=== PATIENT | male | born 1985 | race Caucasian/White ===

== ENCOUNTER 2023-10-19 11:41 | Emergency (ER) | payer BC ==
[2023-10-19 13:03] LABS: BASOPHILS % (AUTO) 0.1 %; HCT - HEMATOCRIT 48.8 % (42.0-52.0); HGB - HEMOGLOBIN 16.9 g/dL (14.0-18.0); LYMPHOCYTES % (AUTO) 6.8 %; MEAN CORPUSCULAR HEMOGLOBIN 30.2 pg (27.0-31.0); MEAN CORPUSCULAR HGB CONC 34.6 g/dL (32.0-36.0); MEAN CORPUSCULAR VOLUME 87.1 fL (80.0-94.0); MONOCYTES # (AUTO) 0.4 10^3/uL (0.0-1.0); MONOCYTES % (AUTO) 2.5 %; NEUTROPHILS # (AUTO) 13.2 10^3/uL (1.5-6.6); NEUTROPHILS % (AUTO) 90.2 %; PLT - PLATELET COUNT 281 10^3/uL (130-450); RED CELL DISTRIBUTION WIDTH 11.9 % (12.0-15.0); WHITE BLOOD COUNT 14.7 x10^3/uL (4.8-10.8)
[2023-10-19 13:25] LABS: ALBUMIN 5.6 g/dL (3.2-5.5); ALBUMIN/GLOBULIN RATIO 1.9 (1.0-2.2); BILIRUBIN,TOTAL 0.7 mg/dL (0.2-1.0); CALCIUM 10.3 mg/dL (8.5-10.3); CREATININE 0.8 mg/dL (0.6-1.3); TOTAL PROTEIN 8.5 g/dL (6.4-8.9)
[2023-10-19] MEDS ORDERED: iohexoL-300 100 ML VIAL ONE (15:43)
[2023-10-19] MEDS: HYDROmorphone 1 MG/ML CARPUJECT IVP STA (16:11)
[2023-10-19] MEDS: ONDANSETRON 4 MG/2 ML VIAL IVP STA ×2 (16:11→17:52)
[2023-10-19] MEDS: SODIUM CHLORIDE 0.9% 1,000 ML IV STA (16:11)
--- NOTE | 2023-10-19 16:34 | CT Report ---
PROCEDURE: Abdomen/Pelvis W INDICATIONS: LLQ abd pain, vomiting CONTRAST: 100ml [id number] TECHNIQUE: After the administration of intravenous contrast, a CT scan of the abdomen and pelvis was performed. Images were recorded and evaluated at appropriate window settings. Reformats: coronal and sagittal. F or radiation dose reduction, the following was used: automated exposure control, adjustment of mA and /or kV according to patient size. COMPARISON: None. FINDINGS: Image quality: Diagnostic. Lower chest: Unremarkable. Liver: No solid mass noted. Mild to moderate diffuse hepatic steatosis. Gallbladder: Absent. Biliary tree: No intrahepatic or extrahepatic dilation, accounting for age. Spleen: No splenomegaly. Pancreas: No pancreatic ductal dilation. Adrenals: No adrenal nodule. Kidneys and ureters: No hydronephrosis. No renal cystic lesion which requires follow up. No solid mas s. Stomach, bowel and peritoneum: No gastric or small bowel dilation. No abnormal wall thickening. No pa thologic free fluid. Remote partial distal colectomy. Lymph nodes: No central or retroperitoneal adenopathy. Vessels: No infrarenal aortic aneurysm. Patent portal vein. PELVIS Reproductive organs: Unremarkable. Bladder: No abnormal wall thickening, accounting for underdistention. Pelvic lymph nodes: No pelvic adenopathy by size criteria. Bones: No aggressive osseous abnormality. Other: No significant ventral or inguinal hernia. IMPRESSION: 1. Mild to moderate diffuse hepatic steatosis. 2. Remote partial distal colectomy. 3. No acute abdominal process identified. Reviewed by: Teo Mckeon MD on 10/19/2023 4:32 PM PDT Approved by: Teo Mckeon MD on 10/19/2023 4:32 PM PDT Station ID: [id number]
[2023-10-19] MEDS: iohexoL-300 100 ML VIAL IVP ONE (17:10)
[2023-10-19] MEDS: PROMETHAZINE 25 MG/1 ML VIAL IM STA (17:40)
[2023-10-19] MEDS: DICYCLOMINE 10 MG CAPSULE PO STA (17:43)
[2023-10-19] MEDS: DROPERIDOL 5 MG/2 ML VIAL IVP STA (17:44)
--- NOTE | 2023-10-19 17:45 | ED Physician Documentation ---
PD HPI NVD - Stated complaint Stated Complaint: N/V - Chief complaint Chief Complaint: Abd Pain - History obtained from History obtained from: Patient - History of Present Illness Timing - onset: Last night Timing - duration: Days Timing - details: Abrupt onset Pain level max: 7 Pain level now: 7 Associated symptoms: Abdominal pain Contributing factors: Bad food. No: Travel, Recent antibiotics, Alcohol use - Additonal information Additional information: 38-year-old male with nausea, vomiting, diarrhea after eating crab last night. He states he has had a colostomy in the past but this has been reversed. He states he had a colonic perforation. Visiting from [place] No fevers. No chills. No recent antibiotics. He states that he does vape, rarely drinks alcohol. No blood in the stool. No blood in the vomit. Has Zofran and Phenergan at home. States that he has been evaluated for inflammatory bowel disease, no history of Crohn's or ulcerative colitis. Review of Systems Constitutional: denies: Fever, Chills Respiratory: denies: Cough Skin: denies: Rash Musculoskeletal: denies: Neck pain, Back pain Neurologic: denies: Headache PD PAST MEDICAL HISTORY - Past Medical History Past Medical History: Yes Cardiovascular: High cholesterol Respiratory: None Neuro: Other Endocrine/Autoimmune: None GI: GERD, Chronic diarrhea, Diverticulitis, Other : None HEENT: None Psych: Anxiety Musculoskeletal: None Derm: None - Past Surgical History Past Surgical History: Yes General: Cholecystectomy, Bowel surgery HEENT: Tonsil/Adenoidectomy - Present Medications Home Medications: Ambulatory Orders Medication Instructions Recorded Confirmed Dicyclomine [Bentyl] 10 mg PO QID PRN #30 cap 10/19/23 - Allergies Allergies/Adverse Reactions: Allergies Allergy/AdvReac Type Severity Reaction Status Date / Time levofloxacin [From Levaquin] Allergy Anaphylaxis Verified 10/19/23 11:57 - Social History Does the pt smoke?: No Smoking Status: Former smoker Does the pt drink ETOH?: Yes Does the pt have substance abuse?: Yes Substance Use and Type: Marijuana - Immunizations Immunizations are current?: Yes - POLST Patient has POLST: No PD ED PE NORMAL - Vitals Vital signs reviewed: Yes - General General: Alert and oriented X 3, No acute distress - HEENT HEENT: PERRL, Moist mucous membranes - Neck Neck: Supple, no meningeal sign - Cardiac Cardiac: RRR, Strong equal pulses - Respiratory Respiratory: No respiratory distress, Clear bilaterally - Abdomen Abdomen: Soft, Non distended, Other (Mild tenderness to palpation, mainly in the left lower quadrant. No peritoneal signs.) - Derm Derm: Warm and dry - Extremities Extremities: No edema, No calf tenderness / cord - Neuro Neuro: Alert and oriented X 3 - Psych Psych: Normal mood, Normal affect Results - Vitals Vitals: Vital Signs - 24 hr 10/19/23 10/19/23 10/19/23 11:57 12:03 14:03 Temperature 36.4 C L Heart Rate 98 106 H 104 H Respiratory 18 16 16 Rate Blood Pressure 162/101 H 158/102 H 151/96 H O2 Saturation 98 98 99 10/19/23 10/19/23 15:13 17:54 Temperature Heart Rate 99 108 H Respiratory 16 18 Rate Blood Pressure 144/97 H 145/95 H O2 Saturation 95 97 Oxygen O2 Source Room air - Labs Labs: Laboratory Tests 10/19/23 10/19/23 12:57 12:57 WBC 14.7 H RBC 5.60 Hgb 16.9 Hct 48.8 MCV 87.1 MCH 30.2 MCHC 34.6 RDW 11.9 L Plt Count 281 MPV 10.0 Neut # (Auto) 13.2 H Lymph # (Auto) 1.0 L [place] # (Auto) 0.4 Eos # (Auto) 0.0 Baso # (Auto) 0.0 Absolute Nucleated RBC 0.00 Nucleated RBC % 0.0 Sodium 140 Potassium 4.0 Chloride 99 L Carbon Dioxide 21 Anion Gap 20.0 H BUN 7 Creatinine 0.8 Estimated GFR (MDRD) 108 Glucose 132 H Calcium 10.3 Total Bilirubin 0.7 AST 31 ALT 29 Alkaline Phosphatase 89 Total Protein 8.5 Albumin 5.6 H Globulin 2.9 Albumin/Globulin Ratio 1.9 Lipase 26 - Rads (name of study) CT abdomen pelvis Relevant Findings:: Final report received, See rad report PD Medical Decision Making - ED course Complexity details: reviewed results, re-evaluated patient, considered different ial, d/w patient ED course: Patient is a 38-year-old male who presents to the emergency department with nausea, vomiting and diarrhea following eating crab last night. Possible food poisoning. Possible viral gastroenteritis. CT scan does not show any acute abnormalities. Given IV fluids. Mild elevation of his white blood cell count. No other significant lab abnormalities. Feels better after Zofran, Dilaudid and IV fluids. Tolerating p.o. without difficulty. He was also given Bentyl which has helped his cramping in the past. Requests a prescription for Bentyl for home. This was provided. Abdomen is soft, nontender nondistended on serial exam. No evidence of perforation or obstruction. Patient counseled regarding signs and symptoms for which I believe and urgent re-evaluation would be necessary. Patient with good understanding of and agreement to plan and is comfortable going home at this time This document was made in part using voice recognition software. While efforts are made to proofread this document, sound alike and grammatical errors may occur. Departure - Departure Disposition: 01 Home, Self Care Clinical Impression: Vomiting Qualifiers: Vomiting type: unspecified Nausea presence: with nausea Qualified Code(s): R11.2 - Nausea with vomiting, unspecified Diarrhea Qualifiers: Diarrhea type: unspecified type Qualified Code(s): R19.7 - Diarrhea, unspecified Condition: Good Instructions: ED Gastroenteritis Vs Food Poison Follow-Up: Laura Downs MD [Primary Care Provider] - Within 1 week Prescriptions: Dicyclomine [Bentyl] 10 mg PO QID PRN #30 cap PRN Reason: Abdominal Pain Comments: Your prescription was sent to [facility] in [place]. Your CT scan does not show any acute abnormalities today. Please make sure you are drinking plenty of fluids at home. Please return if you worsen. Forms: PCP List Discharge Date/Time: 10/19/23 18:00
[2023-10-19 18:03] VITALS: BP 145/95; O2SAT 97
== END 2023-10-19 18:00 | disposition home or self-care (01) ==
LOC: ED 11:41
DX: R11.2 Nausea with vomiting, unspecified (principal); R19.7 Diarrhea, unspecified; E78.00 Pure hypercholesterolemia, unspecified; F17.290 Nicotine dependence, other tobacco product, uncomplicated
CPT/HCPCS: 36415; 74177; 80053; 83690; 85025; 96374; 96375; 99283; A9270; J1170; Q9967

== ENCOUNTER 2023-12-06 07:47 | Emergency (ER) | payer BC ==
--- NOTE | 2023-12-06 08:19 | ED Physician Documentation ---
PD HPI NVD - Stated complaint Stated Complaint: ABD PX,VOMITING - Chief complaint Chief Complaint: Abd Pain - History obtained from History obtained from: Patient - History of Present Illness Timing - duration: Hours (14) Timing - details: Abrupt onset Pain level max: 8 Pain level now: 6 Associated symptoms: Abdominal pain (Diffuse pain, cramping). No: Fever Contributing factors: Sick contact Worsened by: Eating - Additonal information Additional information: 38-year-old male with a history of cyclical vomiting syndrome presents to the emergency department complaining of abdominal pain, nausea and vomiting, states started last night. He states he ate chicken tenders last night. His kids have been sick with nausea, vomiting and diarrhea. He has not had any diarrhea. No fevers. No chills. No recent antibiotics. No recent travel. Had a colonic perforation in the past that required a colostomy that has now been reversed. Review of Systems Constitutional: denies: Fever, Chills GI: denies: Vomiting, Diarrhea Skin: denies: Rash Musculoskeletal: denies: Neck pain, Back pain Neurologic: denies: Headache PD PAST MEDICAL HISTORY - Past Medical History Cardiovascular: High cholesterol Respiratory: None Neuro: Other Endocrine/Autoimmune: None GI: GERD, Chronic diarrhea, Diverticulitis, Other : None HEENT: None Psych: Anxiety Musculoskeletal: None Derm: None - Past Surgical History Past Surgical History: Yes General: Cholecystectomy, Bowel surgery HEENT: Tonsil/Adenoidectomy - Present Medications Home Medications: Ambulatory Orders Medication Instructions Recorded Confirmed Amitriptyline [Elavil] 1 tab PO DAILY 12/06/23 12/06/23 LORazepam [Ativan] 1 tab PO PRN PRN 12/06/23 12/06/23 Pantoprazole Sodium [Protonix] 1 tab PO DAILY 12/06/23 12/06/23 Rosuvastatin Calcium 1 tab PO DAILY 12/06/23 12/06/23 - Allergies Allergies/Adverse Reactions: Allergies Allergy/AdvReac Type Severity Reaction Status Date / Time levofloxacin [From Levaquin] Allergy Anaphylaxis Verified 12/06/23 08:01 - Social History Does the pt smoke?: No Smoking Status: Never smoker Does the pt drink ETOH?: Yes Does the pt have substance abuse?: Yes - Immunizations Immunizations are current?: Yes - POLST Patient has POLST: No PD ED PE NORMAL - Vitals Vital signs reviewed: Yes - General General: Alert and oriented X 3, No acute distress - HEENT HEENT: PERRL, Moist mucous membranes - Neck Neck: Supple, no meningeal sign - Cardiac Cardiac: RRR - Respiratory Respiratory: No respiratory distress, Clear bilaterally - Abdomen Abdomen: Soft, Non distended, Other (Diffusely tender to palpation without peritoneal signs) - Back Back: No CVA TTP, No spinal TTP - Derm Derm: Warm and dry - Extremities Extremities: No deformity, No edema, No calf tenderness / cord - Neuro Neuro: Alert and oriented X 3 - Psych Psych: Normal mood, Normal affect Results - Vitals Vitals: Vital Signs - 24 hr 12/06/23 12/06/23 12/06/23 07:53 10:01 11:31 Temperature 36.1 C L Heart Rate 80 99 101 H Respiratory 18 16 18 Rate Blood Pressure 165/121 H 117/86 H 119/81 H O2 Saturation 99 98 98 Oxygen O2 Source Room air - Labs Labs: Laboratory Tests 12/06/23 12/06/23 08:12 08:28 WBC 8.9 RBC 5.47 Hgb 16.3 Hct 49.2 MCV 89.9 MCH 29.8 MCHC 33.1 RDW 12.4 Plt Count 211 MPV 10.4 Neut # (Auto) 7.6 H Lymph # (Auto) 1.1 L [place] # (Auto) 0.2 Eos # (Auto) 0.0 Baso # (Auto) 0.0 Absolute Nucleated RBC 0.00 Nucleated RBC % 0.0 Sodium 137 Potassium 4.6 H Chloride 100 L Carbon Dioxide 27 Anion Gap 10.0 BUN 7 Creatinine 0.9 Estimated GFR (MDRD) 94 Glucose 135 H Calcium 9.6 Total Bilirubin 0.4 AST 25 ALT 29 Alkaline Phosphatase 90 Total Protein 8.2 Albumin 5.0 Globulin 3.2 Albumin/Globulin Ratio 1.6 Lipase 25 PD Medical Decision Making - ED course Complexity details: reviewed results, re-evaluated patient, considered differential, d/w patient ED course: Patient with cyclical vomiting syndrome. He was given Dilaudid, droperidol, Zofran, Toradol and Bentyl. Slept in the emergency department. Feels much better upon awakening. Symptoms have resolved. He states this is the typical course for his cyclical vomiting syndrome. Request to be discharged home at this time. Patient is well-appearing, nontoxic. Afebrile. No significant lab abnormalities. Tolerating p.o. without difficulty. Patient counseled regarding signs and symptoms for which I believe and urgent re-evaluation would be necessary. Patient with good understanding of and agreement to plan and is comfortable going home at this time This document was made in part using voice recognition software. While efforts are made to proofread this document, sound alike and grammatical errors may occur. Departure - Departure Disposition: 01 Home, Self Care Clinical Impression: Vomiting Qualifiers: Vomiting type: unspecified Nausea presence: with nausea Qualified Code(s): R11.2 - Nausea with vomiting, unspecified Abdominal pain Qualifiers: Abdominal location: unspecified location Qualified Code(s): R10.9 - Unspecified abdominal pain Condition: Good Instructions: ED Nausea Vomiting Follow-Up: your,doctor in 1 week [Other] Comments: Please follow-up with your doctor for further care. Please return if you worsen. Forms: PCP List Discharge Date/Time: 12/06/23 11:34
[2023-12-06] MEDS: HYDROmorphone 1 MG/ML CARPUJECT IVP STA ×2 (08:22→10:20)
[2023-12-06] MEDS: diphenhydrAMINE INJ 50 MG/ML VIAL IVP STA (08:22)
[2023-12-06] MEDS: DROPERIDOL 5 MG/2 ML VIAL IVP STA (08:23)
[2023-12-06 08:25] LABS: BASOPHILS % (AUTO) 0.2 %; EOSINOPHILS % (AUTO) 0.1 %; HCT - HEMATOCRIT 49.2 % (42.0-52.0); HGB - HEMOGLOBIN 16.3 g/dL (14.0-18.0); LYMPHOCYTES # (AUTO) 1.1 10^3/uL (1.5-3.5); LYMPHOCYTES % (AUTO) 12.1 %; MEAN CORPUSCULAR HEMOGLOBIN 29.8 pg (27.0-31.0); MEAN CORPUSCULAR HGB CONC 33.1 g/dL (32.0-36.0); MEAN CORPUSCULAR VOLUME 89.9 fL (80.0-94.0); MEAN PLATELET VOLUME 10.4 fL (7.4-11.4); MONOCYTES # (AUTO) 0.2 10^3/uL (0.0-1.0); MONOCYTES % (AUTO) 2.1 %; NEUTROPHILS # (AUTO) 7.6 10^3/uL (1.5-6.6); NEUTROPHILS % (AUTO) 85.2 %; PLT - PLATELET COUNT 211 10^3/uL (130-450); RED BLOOD COUNT 5.47 10^6/uL (4.70-6.10); RED CELL DISTRIBUTION WIDTH 12.4 % (12.0-15.0); WHITE BLOOD COUNT 8.9 x10^3/uL (4.8-10.8)
[2023-12-06] MEDS: SODIUM CHLORIDE 0.9% 1,000 ML IV STA (08:28)
[2023-12-06 08:54] LABS: ALBUMIN/GLOBULIN RATIO 1.6 (1.0-2.2); BILIRUBIN,TOTAL 0.4 mg/dL (0.2-1.0); CALCIUM 9.6 mg/dL (8.5-10.3); CREATININE 0.9 mg/dL (0.6-1.3); POTASSIUM 4.6 mmol/L (3.5-4.5); TOTAL PROTEIN 8.2 g/dL (6.4-8.9)
[2023-12-06] MEDS: KETOROLAC 30 MG/ML VIAL IVP STA (08:55)
[2023-12-06] MEDS: PANTOPRAZOLE 40 MG VIAL IVP STA (08:55)
[2023-12-06] MEDS: DICYCLOMINE 10 MG CAPSULE PO STA (10:19)
[2023-12-06] MEDS: ONDANSETRON 4 MG/2 ML VIAL IVP STA (10:20)
[2023-12-06 10:32] VITALS: O2SAT 98
[2023-12-06 11:38] VITALS: BP 119/81
== END 2023-12-06 11:34 | disposition home or self-care (01) ==
LOC: ED 07:47
DX: R11.15 Cyclical vomiting syndrome unrelated to migraine (principal)
CPT/HCPCS: 36415; 80053; 83690; 85025; 96361; 96374; 96375; 96376; 99283; 99285; A9270; J1170; J1200